=== PATIENT | male | born 1995 | race African-American/Black ===

== ENCOUNTER 2021-09-29 15:15 | Outpatient (CLI) | payer OTHER | END 2021-09-29 15:16 | disposition critical access hospital (66) | LOC: EMS 15:15 | DX: R07.9 Chest pain, unspecified (principal); F41.9 Anxiety disorder, unspecified | CPT/HCPCS: A0425; A0429 ==

== ENCOUNTER 2021-09-29 15:39 | Emergency (ER) | payer OTHER ==
--- NOTE | 2021-09-29 16:04 | ED Physician Documentation ---
History of Present Illness - Stated complaint Stated Complaint: CP/ANXIETY - Chief complaint Chief Complaint: Cardiac - Additonal information Additional information: 25-year-old male presents the emergency department for evaluation of chest pain. He remote reports that its been intermittent pressure-like. It has caused near fainting. It has been more persistent now for the last hour or 2. He states he had similar about a year ago when [place]. He was diagnosed with pericarditis and this feels similar. No family history of sudden or early cardiac or disease. He does vape. No recent travel, no unilateral leg swelling. Patient is fully vaccinated for COVID-19. Review of Systems Constitutional: denies: Fever, Chills Eyes: reports: Reviewed and negative Ears: reports: Reviewed and negative Nose: reports: Reviewed and negative Throat: reports: Reviewed and negative Cardiac: reports: Chest pain / pressure. denies: Palpitations Respiratory: denies: Dyspnea, Cough GI: denies: Abdominal Pain, Abdominal Swelling : reports: Reviewed and negative Skin: reports: Reviewed and negative PD PAST MEDICAL HISTORY - Present Medications Home Medications: Ambulatory Orders Medication Instructions Recorded Confirmed Ibuprofen [Motrin] 1 tablet PO Q8H PRN #30 tablet 09/29/21 - Allergies Allergies/Adverse Reactions: Allergies Allergy/AdvReac Type Severity Reaction Status Date / Time No Known Drug Allergies Allergy Verified 09/29/21 15:46 PD ED PE NORMAL - General General: Alert and oriented X 3, No acute distress, Well developed/nourished - HEENT HEENT: Atraumatic, Moist mucous membranes - Neck Neck: Supple, no meningeal sign, No adenopathy - Cardiac Cardiac: RRR, No murmur, No gallop, No rub, Strong equal pulses - Respiratory Respiratory: Clear bilaterally - Abdomen Abdomen: Normal bowel sounds, Soft - Back Back: No CVA TTP - Derm Derm: Normal color, No rash - Extremities Extremities: No deformity, No tenderness to palpate, Normal ROM s pain - Neuro Neuro: Alert and oriented X 3, lead cashier 2-12 intact Eye Opening: Spontaneous Motor: Obeys Commands Verbal: Oriented GCS Score: 15 Results - Vitals Vitals: Vital Signs - 24 hr 09/29/21 15:42 Temperature 37.0 C Heart Rate 83 Respiratory 20 Rate Blood Pressure 130/76 O2 Saturation 98 Oxygen O2 Source Room air - EKG (time done) 1629 Rate: Rate (enter#) (102) Rhythm: NSR [place]: Normal Intervals: Normal [place]. No: Prolonged QT Ischemia: ST elevation c/w ischemia, Other (ST elevations noted in V3, V4 and V5 as well as lead II.) Compare to prior EKG: Old EKG unavailable Computer interpretation: Agree with computer - Labs Labs: Laboratory Tests 09/29/21 09/29/21 09/29/21 16:03 16:03 16:03 WBC 4.8 RBC 4.73 Hgb 14.8 Hct 41.5 L MCV 87.7 MCH 31.3 H MCHC 35.7 RDW 11.3 L Plt Count 255 MPV 10.2 Neut # (Auto) 3.1 Lymph # (Auto) 1.2 L [place] # (Auto) 0.5 Eos # (Auto) 0.0 Baso # (Auto) 0.0 Absolute Nucleated RBC 0.00 Nucleated RBC % 0.0 Sodium 132 L Potassium 3.3 L Chloride 99 L Carbon Dioxide 23 Anion Gap 10.0 BUN 15 Creatinine 1.2 Estimated GFR (MDRD) 90 Glucose 104 H Calcium 9.5 Total Bilirubin 0.7 AST 22 ALT 20 Alkaline Phosphatase 41 L Troponin I High Sens < 2.3 L C-Reactive Protein < 1.0 Total Protein 7.7 Albumin 4.4 Globulin 3.3 Albumin/Globulin Ratio 1.3 Lipase 42 - Rads (name of study) CXR Radiology: Final report received (Mildly coarsened interstitial markings. Faint airspace opacities cannot be excluded.) PD MEDICAL DECISION MAKING - ED course Complexity details: reviewed results, re-evaluated patient, considered differential, d/w patient ED course: 25-year-old male presents to the emergency department for evaluation of chest pain that began earlier this morning. Chest pain was not exertional. He does have a history of pericarditis which was treated about a year ago when he was out to see. Today his screening EKG does show some generalized ST elevations particularly V3 through V5 as well as lead II. These are consistent with pericarditis. His CRP is not elevated and his troponin is negative. He does not have any recent illness or fevers. His mentation is normal. At this time we will treat him for pericarditis and will recommend ibuprofen 800 mg 3 times a day with food. Follow-up with [facility] tomorrow. May benefit from referral to a legal arbitrator. emergent return precautions were discussed for fevers, sudden severe shortness of air, any fainting episodes or worsening chest pain. Departure - Departure Disposition: 01 Home, Self Care Clinical Impression: Pericarditis Qualifiers: Pericarditis type: unspecified type Chronicity: acute Qualified Code(s): I30.9 - Acute pericarditis, unspecified Condition: Stable Record reviewed to determine appropriate education?: Yes Instructions: ED Chest Pain Pericarditis, Pericarditis Prescriptions: Ibuprofen [Motrin] 1 tablet PO Q8H PRN #30 tablet PRN Reason: PAIN &/OR FEVER Comments: You were seen in the emergency department today for evaluation of chest pain. You do report a history of pericarditis. Your EKG today does show ST elevations particularly in your lateral leads. This is consistent with a history of pericarditis. However your screening labs did not show any worrisome abnormalities particularly your troponin. Chest x-ray did not show any pneumonia. In general the treatment of pericarditis is to take higher dose NSAID medications for at least 1 week. If at any point you find that you develop a fever, have fainting episodes, sudden severe chest pain or shortness of air then you are to return immediately to the ER. Please see [facility] tomorrow. You are not cleared to return to duty until seen by [facility]. I have sent a prescription for ibuprofen 800 mg to be taken 3 times a day to the [facility] in [place].
[2021-09-29 16:12] LABS: BASOPHILS % (AUTO) 0.4 %; EOSINOPHILS % (AUTO) 0.2 %; HCT - HEMATOCRIT 41.5 % (42.0-52.0); HGB - HEMOGLOBIN 14.8 g/dL (14.0-18.0); LYMPHOCYTES # (AUTO) 1.2 10^3/uL (1.5-3.5); LYMPHOCYTES % (AUTO) 24.9 %; MEAN CORPUSCULAR HEMOGLOBIN 31.3 pg (27.0-31.0); MEAN CORPUSCULAR HGB CONC 35.7 g/dL (32.0-36.0); MEAN CORPUSCULAR VOLUME 87.7 fL (80.0-94.0); MEAN PLATELET VOLUME 10.2 fL (7.4-11.4); MONOCYTES # (AUTO) 0.5 10^3/uL (0.0-1.0); MONOCYTES % (AUTO) 10.2 %; NEUTROPHILS # (AUTO) 3.1 10^3/uL (1.5-6.6); NEUTROPHILS % (AUTO) 63.9 %; PLT - PLATELET COUNT 255 10^3/uL (130-450); RED BLOOD COUNT 4.73 10^6/uL (4.70-6.10); RED CELL DISTRIBUTION WIDTH 11.3 % (12.0-15.0); WHITE BLOOD COUNT 4.8 x10^3/uL (4.8-10.8)
--- NOTE | 2021-09-29 16:28 | XRAY Report ---
PROCEDURE: Chest 1 View X-Ray INDICATIONS: Chest Pain TECHNIQUE: One view of the chest was acquired. COMPARISON: None. FINDINGS: SUPPORT DEVICES: None. LUNGS/PLEURA: Mildly coarsened interstitial markings. No consolidation, pleural effusion, or pneumoth orax. MEDIASTINUM: The cardiomediastinal silhouette is within normal limits. BONES/SOFT TISSUES: No acute abnormality. IMPRESSION: 1.Mildly coarsened interstitial markings. Faint airspace opacities cannot be excluded. Reviewed by: Daniel Romeo MD on 09/29/2021 4:26 PM [facility] Approved by: Daniel Romeo MD on 09/29/2021 4:26 PM [facility] Station ID: [id number]
[2021-09-29 16:29] LABS: ALBUMIN 4.4 g/dL (3.2-5.5); ALBUMIN/GLOBULIN RATIO 1.3 (1.0-2.2); ALKALINE PHOSPHATASE 41 IU/L (42-121); ALT ALANINE AMINOTRANSFERASE 20 IU/L (10-60); AST ASPARTATE AMINOTRANSFERASE 22 IU/L (10-42); BILIRUBIN,TOTAL 0.7 mg/dL (0.2-1.0); BUN - BLOOD UREA NITROGEN 15 mg/dL (6-20); CALCIUM 9.5 mg/dL (8.5-10.3); CARBON DIOXIDE - CO2 23 mmol/L (21-32); CHLORIDE 99 mmol/L (101-111); CREATININE 1.2 mg/dL (0.6-1.2); GFR - MDRD 90 (>89); GLUCOSE 104 mg/dL (70-100); LIPASE 42 U/L (22-51); POTASSIUM 3.3 mmol/L (3.5-5.0); SODIUM 132 mmol/L (135-145); TOTAL PROTEIN 7.7 g/dL (6.7-8.2)
[2021-09-29 16:39] LABS: CRP - C-REACTIVE PROTEIN < 1.0 mg/dL (0-1.0)
[2021-09-29] MEDS: IBUPROFEN 800 MG TABLET PO STA (17:03)
[2021-09-29 17:37] VITALS: BP 119/94
== END 2021-09-29 17:32 | disposition home or self-care (01) ==
LOC: ED 15:39
DX: I30.9 Acute pericarditis, unspecified (principal); F17.290 Nicotine dependence, other tobacco product, uncomplicated
CPT/HCPCS: 36415; 71045; 80053; 83690; 84484; 85025; 85651; 86140; 93005; 99283; 99284; A9270

== ENCOUNTER 2022-06-23 08:00 | Outpatient (CLI) | payer OTHER ==
[2022-06-23 18:17] LABS: BASOPHILS % (AUTO) 0.6 %; EOSINOPHILS % (AUTO) 0.6 %; HCT - HEMATOCRIT 43.2 % (42.0-52.0); HGB - HEMOGLOBIN 14.9 g/dL (14.0-18.0); LYMPHOCYTES # (AUTO) 1.3 10^3/uL (1.5-3.5); LYMPHOCYTES % (AUTO) 42.2 %; MEAN CORPUSCULAR HEMOGLOBIN 31.2 pg (27.0-31.0); MEAN CORPUSCULAR HGB CONC 34.5 g/dL (32.0-36.0); MEAN CORPUSCULAR VOLUME 90.4 fL (80.0-94.0); MONOCYTES # (AUTO) 0.3 10^3/uL (0.0-1.0); MONOCYTES % (AUTO) 8.3 %; NEUTROPHILS # (AUTO) 1.5 10^3/uL (1.5-6.6); NEUTROPHILS % (AUTO) 48.3 %; PLT - PLATELET COUNT 263 10^3/uL (130-450); RED BLOOD COUNT 4.78 10^6/uL (4.70-6.10); RED CELL DISTRIBUTION WIDTH 11.5 % (12.0-15.0); WHITE BLOOD COUNT 3.1 x10^3/uL (4.8-10.8)
[2022-06-23 18:24] LABS: ALBUMIN 4.5 g/dL (3.2-5.5); ALBUMIN/GLOBULIN RATIO 1.4 (1.0-2.2); ALKALINE PHOSPHATASE 39 IU/L (42-121); ALT ALANINE AMINOTRANSFERASE 13 IU/L (10-60); AST ASPARTATE AMINOTRANSFERASE 19 IU/L (10-42); BUN - BLOOD UREA NITROGEN 8 mg/dL (6-20); CALCIUM 9.5 mg/dL (8.5-10.3); CARBON DIOXIDE - CO2 26 mmol/L (21-32); CHLORIDE 101 mmol/L (101-111); CREATININE 1.2 mg/dL (0.6-1.2); GFR - MDRD 89 (>89); GLUCOSE 93 mg/dL (70-100); POTASSIUM 3.6 mmol/L (3.5-5.0); SODIUM 135 mmol/L (135-145); TOTAL PROTEIN 7.7 g/dL (6.7-8.2)
[2022-06-23 18:25] LABS: CRP - C-REACTIVE PROTEIN < 1.0 mg/dL (0-1.0)
== END 2022-06-23 23:59 | disposition home or self-care (01) ==
LOC: LAB.N 08:00
PROVIDERS: ATTEND Registered Nurse
DX: R07.2 Precordial pain (principal)
CPT/HCPCS: 36415; 80053; 84484; 85025; 86140

== ENCOUNTER 2022-07-13 13:31 | Emergency (ER) | payer OTHER ==
[2022-07-13 14:22] LABS: BASOPHILS % (AUTO) 0.3 %; EOSINOPHILS % (AUTO) 0.5 %; LYMPHOCYTES # (AUTO) 1.2 10^3/uL (1.5-3.5); LYMPHOCYTES % (AUTO) 32.2 %; MEAN CORPUSCULAR HEMOGLOBIN 30.9 pg (27.0-31.0); MEAN CORPUSCULAR HGB CONC 34.1 g/dL (32.0-36.0); MEAN CORPUSCULAR VOLUME 90.5 fL (80.0-94.0); MEAN PLATELET VOLUME 9.7 fL (7.4-11.4); MONOCYTES # (AUTO) 0.4 10^3/uL (0.0-1.0); MONOCYTES % (AUTO) 9.5 %; NEUTROPHILS # (AUTO) 2.1 10^3/uL (1.5-6.6); NEUTROPHILS % (AUTO) 57.2 %; PLT - PLATELET COUNT 265 10^3/uL (130-450); RED BLOOD COUNT 4.86 10^6/uL (4.70-6.10); RED CELL DISTRIBUTION WIDTH 11.4 % (12.0-15.0); WHITE BLOOD COUNT 3.7 x10^3/uL (4.8-10.8)
--- NOTE | 2022-07-13 14:25 | XRAY Report ---
PROCEDURE: Chest 1 View X-Ray INDICATIONS: Chest pain TECHNIQUE: One view of the chest was acquired. COMPARISON: 06/23/2022 and 09/29/2021 FINDINGS: Surgical changes and devices: None. Lungs and pleura: No pleural effusions or pneumothorax. Lungs are clear. Mediastinum: Mediastinal contours appear normal. Heart size is normal. Bones and chest wall: No suspicious bony lesions. Overlying soft tissues appear unremarkable. IMPRESSION: No acute cardiopulmonary process demonstrated radiographically. Reviewed by: Rhett Lemons MD on 07/13/2022 2:24 PM PDT Approved by: Rhett Lemons MD on 07/13/2022 2:24 PM PDT Station ID: [id number]
--- NOTE | 2022-07-13 14:31 | ED Physician Documentation ---
PD HPI CHEST PAIN - Stated complaint Stated Complaint: CHEST PX - Chief complaint Chief Complaint: Cardiac - History obtained from History obtained from: Patient - History of Present Illness Timing - onset: How many days ago (10) Timing - onset during: Light activity Timing - duration: Days (10) Timing - details: Gradual onset, Still present Pain level max: 5 Pain level now: 2 Quality: Pressure, Aching, Pain Location: Substernal, Left chest Radiation: No: Jaw, Neck, Back, Abdominal, Left upper extremity, Right upper extremity Improved by: Rest Worsened by: Exertion, Inspiration Associated symptoms: Other (cold feeling to chest on the left with nipple sensitivity). No: Shortness of air, Diaphoresis, Nausea, Vomiting, Feeling faint / dizzy, General Weakness, Palpitations, Cough Similar symptoms before: Diagnosis (pericarditis) Recently seen: Clinic - Additional information Additional information: -26 y/o male with hx of pericarditis has been on treatment for the past week with ibuprofen and colchicine. Today he has an increase in his pain in the left side and a feeling of "coldness" to the left chest including nipple tenderness. He was asked by his command to come to the ED for evaluation. Review of Systems Constitutional: denies: Fever Ears: denies: Ear pain Nose: denies: Congestion Throat: denies: Sore throat Cardiac: reports: Chest pain / pressure. denies: Palpitations, Pedal edema, Calf pain Respiratory: denies: Dyspnea, Cough, Wheezing GI: denies: Abdominal Pain, Nausea, Vomiting, Constipation, Diarrhea : denies: Dysuria, Frequency PD PAST MEDICAL HISTORY - Past Medical History Cardiovascular: Other - Present Medications Home Medications: Ambulatory Orders Medication Instructions Recorded Confirmed Colchicine [Colcrys] 0.6 mg PO DAILY 07/13/22 07/13/22 Ibuprofen [Motrin] 400 mg PO Q8HR 07/13/22 07/13/22 Omeprazole Magnesium 20 mg PO DAILY PM 07/13/22 07/13/22 - Allergies Allergies/Adverse Reactions: Allergies Allergy/AdvReac Type Severity Reaction Status Date / Time Sulfa (Sulfonamide Allergy Unknown Verified 07/13/22 13:46 Antibiotics) - Social History Does the pt smoke?: No Smoking Status: Never smoker Does the pt drink ETOH?: Yes Does the pt have substance abuse?: No - POLST Patient has POLST: No PD ED PE NORMAL - Vitals Vital signs reviewed: Yes (hypertensive mild) - General General: Alert and oriented X 3, No acute distress, Well developed/nourished - HEENT HEENT: Atraumatic, PERRL, EOMI - Neck Neck: Supple, no meningeal sign, No bony TTP - Cardiac Cardiac: RRR, No murmur - Respiratory Respiratory: No respiratory distress, Clear bilaterally - Abdomen Abdomen: Normal bowel sounds, Soft, Non tender, Non distended, No organomegaly - Back Back: No CVA TTP, No spinal TTP - Derm Derm: Normal color, Warm and dry, No rash - Extremities Extremities: No deformity, No edema - Neuro Neuro: Alert and oriented X 3, sales assoc 2-12 intact, No motor deficit, No sensory deficit, Normal speech Eye Opening: Spontaneous Motor: Obeys Commands Verbal: Oriented GCS Score: 15 - Psych Psych: Normal mood, Normal affect Results - Vitals Vitals: Vital Signs - 24 hr 07/13/22 07/13/22 07/13/22 13:40 13:46 15:06 Temperature 36.6 C 36.6 C 36.6 C Heart Rate 92 92 78 Respiratory 16 16 16 Rate Blood Pressure 121/83 H 121/83 H 133/74 H O2 Saturation 99 99 100 Oxygen O2 Source Room air - EKG (time done) 1348 Rate: Rate (enter#) (72) Rhythm: NSR Ischemia: Other (ST elevation inferior and anterolaterally consistent with pericarditis) Compare to prior EKG: Changed from prior EKG (SPT 09/29/21 the rate has decreased) Computer interpretation: Disagree with computer (I do not believe this is an acute MA) - Labs Labs: Laboratory Tests 07/13/22 07/13/22 07/13/22 14:16 14:16 14:16 WBC 3.7 L RBC 4.86 Hgb 15.0 Hct 44.0 MCV 90.5 MCH 30.9 MCHC 34.1 RDW 11.4 L Plt Count 265 MPV 9.7 Neut # (Auto) 2.1 Lymph # (Auto) 1.2 L [place] # (Auto) 0.4 Eos # (Auto) 0.0 Baso # (Auto) 0.0 Absolute Nucleated RBC 0.00 Nucleated RBC % 0.0 ESR Sodium 137 Potassium 3.7 Chloride 101 Carbon Dioxide 26 Anion Gap 10.0 BUN 12 Creatinine 1.2 Estimated GFR (MDRD) 89 Glucose 97 Calcium 9.7 Magnesium 2.1 Total Bilirubin 1.0 AST 20 ALT 15 Alkaline Phosphatase 52 Troponin I High Sens < 2.3 L C-Reactive Protein < 1.0 Total Protein 8.2 Albumin 4.9 Globulin 3.3 Albumin/Globulin Ratio 1.5 07/13/22 14:16 WBC RBC Hgb Hct MCV MCH MCHC RDW Plt Count MPV Neut # (Auto) Lymph # (Auto) [place] # (Auto) Eos # (Auto) Baso # (Auto) Absolute Nucleated RBC Nucleated RBC % ESR 5 Sodium Potassium Chloride Carbon Dioxide Anion Gap BUN Creatinine Estimated GFR (MDRD) Glucose Calcium Magnesium Total Bilirubin AST ALT Alkaline Phosphatase Troponin I High Sens C-Reactive Protein Total Protein Albumin Globulin Albumin/Globulin Ratio - Rads (name of study) chest Radiology: Prelim report reviewed (Impression: No acute cardiopulmonary process demonstrated radiographically.), EMP read indepedently, See rad report Procedures - Bedside sono Bedside sono by EMP: With use of POCUS the heart was imaged and there is no evidence of a pericardial effusion. 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 He was asked by his demand come to the emerge ncy department he does not feel otherwise ill and has resolution of the symptoms he was complaining of. His electrocardiogram is abnormal for ST elevations throughout and consistent with pericarditis. We did do POCUS and found no evidence of pericardial effusion. His inflammatory markers were not elevated. He does have follow-up with cardiology. He will continue his current treatment. Departure - Departure Disposition: 01 Home, Self Care Clinical Impression: Pericarditis Qualifiers: Pericarditis type: unspecified type Chronicity: acute Qualified Code(s): I30.9 - Acute pericarditis, unspecified Condition: Stable Instructions: ED Chest Pain Pericarditis Follow-Up: [facility]ts [Provider Group] Comments: Shalini, today it looks like there is no change to the findings on the electrocardiogram or blood work. Your chest x-ray looks well as well. There is no fluid around your heart on bedside ultrasound. Our expectations is is for improvement as previously. A follow-up with a revenue accountant is indicated and I see that you have this already set up. Today your inflammatory markers were not elevated. Discharge Date/Time: 07/13/22 15:07
[2022-07-13 14:44] LABS: ALBUMIN 4.9 g/dL (3.2-5.5); ALBUMIN/GLOBULIN RATIO 1.5 (1.0-2.2); ALKALINE PHOSPHATASE 52 IU/L (42-121); ALT ALANINE AMINOTRANSFERASE 15 IU/L (10-60); AST ASPARTATE AMINOTRANSFERASE 20 IU/L (10-42); BUN - BLOOD UREA NITROGEN 12 mg/dL (6-20); CALCIUM 9.7 mg/dL (8.5-10.3); CARBON DIOXIDE - CO2 26 mmol/L (21-32); CHLORIDE 101 mmol/L (101-111); CREATININE 1.2 mg/dL (0.6-1.2); GFR - MDRD 89 (>89); GLUCOSE 97 mg/dL (70-100); MAGNESIUM 2.1 mg/dL (1.7-2.8); POTASSIUM 3.7 mmol/L (3.5-5.0); SODIUM 137 mmol/L (135-145); TOTAL PROTEIN 8.2 g/dL (6.7-8.2)
[2022-07-13 14:57] LABS: CRP - C-REACTIVE PROTEIN < 1.0 mg/dL (0-1.0)
[2022-07-13 15:07] VITALS: BP 133/74
== END 2022-07-13 15:07 | disposition home or self-care (01) ==
LOC: ED 13:31
DX: I30.9 Acute pericarditis, unspecified (principal)
CPT/HCPCS: 36415; 80053; 83735; 84484; 85025; 85651; 86140; 93005; 99284

== ENCOUNTER 2022-08-08 15:11 | Outpatient (CLI) | payer OTHER ==
[2022-08-08 18:02] LABS: BASOPHILS % (AUTO) 0.6 %; EOSINOPHILS % (AUTO) 0.9 %; HCT - HEMATOCRIT 43.9 % (42.0-52.0); HGB - HEMOGLOBIN 14.6 g/dL (14.0-18.0); LYMPHOCYTES # (AUTO) 1.2 10^3/uL (1.5-3.5); LYMPHOCYTES % (AUTO) 34.1 %; MEAN CORPUSCULAR HEMOGLOBIN 30.4 pg (27.0-31.0); MEAN CORPUSCULAR HGB CONC 33.3 g/dL (32.0-36.0); MEAN CORPUSCULAR VOLUME 91.3 fL (80.0-94.0); MONOCYTES # (AUTO) 0.3 10^3/uL (0.0-1.0); MONOCYTES % (AUTO) 9.1 %; NEUTROPHILS % (AUTO) 55.3 %; PLT - PLATELET COUNT 254 10^3/uL (130-450); RED BLOOD COUNT 4.81 10^6/uL (4.70-6.10); RED CELL DISTRIBUTION WIDTH 11.8 % (12.0-15.0); WHITE BLOOD COUNT 3.5 x10^3/uL (4.8-10.8)
[2022-08-08 18:08] LABS: ALBUMIN 4.7 g/dL (3.2-5.5); ALBUMIN/GLOBULIN RATIO 1.6 (1.0-2.2); ALKALINE PHOSPHATASE 45 IU/L (42-121); ALT ALANINE AMINOTRANSFERASE 11 IU/L (10-60); AST ASPARTATE AMINOTRANSFERASE 19 IU/L (10-42); BILIRUBIN,TOTAL 0.7 mg/dL (0.2-1.0); BUN - BLOOD UREA NITROGEN 16 mg/dL (6-20); CALCIUM 9.3 mg/dL (8.5-10.3); CARBON DIOXIDE - CO2 28 mmol/L (21-32); CHLORIDE 102 mmol/L (101-111); CHOL/HDL RATIO 2.4 (<5.0); CHOLESTEROL 169 mg/dL; CREATININE 1.1 mg/dL (0.6-1.2); CRP - C-REACTIVE PROTEIN 1.4 mg/dL (0-1.0); GFR - MDRD 99 (>89); GLUCOSE 97 mg/dL (70-100); HDL CHOLESTEROL 69 mg/dL; LDL CHOLESTEROL,CALCULATED 80 mg/dL; LDL/HDL RATIO 1.2 (<3.6); SODIUM 137 mmol/L (135-145); TOTAL PROTEIN 7.6 g/dL (6.7-8.2); TRIGLYCERIDES 100 mg/dL; VLDL CHOLESTEROL 20 mg/dL
[2022-08-08 21:42] LABS: RHEUMATOID FACTOR NEGATIVE (Negative)
[2022-08-10 12:09] LABS: ANTINUCLEAR ANTIBODIES IFA Negative (.)
== END 2022-08-08 15:12 | disposition home or self-care (01) ==
LOC: LAB.N 15:11
PROVIDERS: ATTEND Nurse Practitioner Family
DX: I31.9 Disease of pericardium, unspecified (principal); R07.89 Other chest pain; R00.2 Palpitations
CPT/HCPCS: 36415; 80053; 80061; 83721; 84443; 85025; 85651; 86038; 86140; 86430

== ENCOUNTER 2022-09-06 09:18 | Outpatient (CLI) | payer OTHER | END 2022-09-06 09:19 | disposition home or self-care (01) | LOC: DI 09:18 | PROVIDERS: ATTEND Physician Assistant | DX: I31.9 Disease of pericardium, unspecified (principal) | CPT/HCPCS: 93306 ==